=== PATIENT | female | born 1995 | race Caucasian/White ===

== ENCOUNTER 2020-07-29 20:19 | Inpatient (IN) | payer OTHER, SELFPAY ==
--- NOTE | ~2020-07-29 | MR_ITS ---
EXAMINATION: MR abdomen wo/w con DATE: 07/30/2020 10:46 INDICATION: Abdominal pain. TECHNIQUE: Magnetic resonance imaging (MRI) of the abdomen was performed without and with 10 mL Multi Erin intravenous contrast. Sequences included coronal T2-weighted FS FSE, coronal and axial FS FIEST A, axial T2-weighted FSE, coronal LAVA-flex, axial STIR FSE, axial DWI, axial dual-echo T1-weighted F SPGR, and axial LAVA. Postcontrast sequences included coronal LAVA-flex and a time course of axial LA VA. COMPARISON: CT abdomen and pelvis 07/29/2020 FINDINGS: The liver, gallbladder, spleen, pancreas, adrenal glands, and right kidney are normal. There is a 4 m m cyst in left kidney. There are dilated loops of small bowel without focal transition point. There a re no pathologically enlarged lymph nodes. There is no free intraperitoneal fluid. The bladder is dis tended. IMPRESSION: 1. Dilated small bowel without focal transition point, consistent with adynamic ileus. Reviewed, dictated and finalized at location A.
--- NOTE | ~2020-07-29 | CT_ITS ---
EXAMINATION: CT chest abdomen pelvis w con EXAM DATE: 07/29/2020 22:06 INDICATION: Diffuse abdominal pain. Groin pain. Chest pain, constipation, elevated white blood cell c ount. TECHNIQUE: Spiral CT of the chest, abdomen and pelvis was performed following intravenous injection o f 100 mL Omnipaque 350. Axial, coronal and sagittal images were reviewed. Coronal maximum intensity pixel images of chest reviewed. The dose-length product (DLP) for this examination was 305.79 mGy-c m. The exposure was tailored according to patient size (auto mA exposure control), and iterative rec onstruction (ASIR) was used as additional dose reduction technique. There is no prior study for yoana carrasco. FINDINGS: CHEST: The lungs are clear. There are no pleural or pericardial effusions. Tracheobronchial tree is patent. There is no mediastinal, hilar or axillary lymphadenopathy. There is no pneumothorax. Heart normal in size. No evidence of coronary arterial calcification. ABDOMEN PELVIS: Large amount of ascending colonic fluid, moderate amount of descending colonic stool. Multiple loops of mildly distended fluid-filled small bowel. Stomach is also distended with fluid. C onsider enteritis. The appendix is not positively visualized. There is no pericecal inflammatory donna nge to suggest appendicitis. No free intraperitoneal air. The liver, spleen, adrenal glands and pancreas are unremarkable. Gallbladder is unremarkable. No bi liary obstruction. Portal and splenic veins are patent. Kidneys enhance symmetrically. There is no hydronephrosis. The uterus is unremarkable. The bladder is unremarkable. There is no retroperit rowland or pelvic lymphadenopathy. There are no osseous abnormalities identified. IMPRESSION: 1. Fluid-filled ascending colon and small bowel with mild small bowel dilation. Consider enteritis. 2. Normal chest. Reviewed, dictated and finalized at location A. IMPRESSION: 1. Fluid-filled ascending colon and small bowel with mild small bowel dilation . Consider enteritis. 2. Normal chest.
--- NOTE | 2020-07-29 20:22 | ED.ABDPAIN ---
HPI - Abdominal Pain General Chief Complaint: Abdominal Pain Stated Complaint: abd pain Time Seen by Provider: 07/29/20 20:31 Source: patient Mode of arrival: wheelchair Limitations: no limitations History of Present Illness HPI narrative: 24-year-old woman comes in today complaining of abdominal pain that goes from her chest down to her pelvis and states that she cannot have a bowel movement or urinate. She states that her symptoms started yesterday and she hasn't had a bowel movement for three days. She states that they started suddenly and had not gotten any better or worse since onset. She denies injury, nausea, vomiting, vaginal discharge, hematuria, dysuria, fever, chills or prior similar symptoms. He has no history of surgery. MD elicited complaint: abdominal pain Onset (ago): day(s) (2) Pain Consistency: constant Location: diffuse Severity: severe Quality: sharp Radiation: none Migration to: no migration Exacerbating factors: nothing Relieving factors: nothing Related Data Patient : No Home Medications Medication Instructions Recorded Confirmed No Home Medications 07/29/20 07/29/20 Allergies Allergy/AdvReac Type Severity Reaction Status Date / Time Bumble Bee Allergy Mild Hives / Uncoded 07/30/18 11:25 Red Face Review of Systems Constitutional: Constitutional: Denies chills and Denies fever(s) Eyes: Eyes: Denies change in vision and Denies photophobia ENT: Denies dysphagia, Denies nasal congestion and Denies sore throat Cardiovascular: Cardiovascular: Denies chest pain and Denies radiating jaw, neck or arm pain Respiratory: Respiratory: Denies cough, Denies dyspnea and Denies wheezing Gastrointestinal: Gastrointestinal: Reports abdominal pain, Denies diarrhea, Denies nausea and Denies vomiting Genitourinary: Genitourinary: Denies nocturia and Denies dysuria Musculoskeletal: Musculoskeletal: Denies arthralgias and Denies joint swelling Integumentary/Breasts: Skin/Breast: Denies pruritus, Denies erythema and Denies rash Neurologic: Denies vertigo, Denies dizziness and Denies syncope Hematologic/Lymphatic: Hematologic/Lymphatic: Denies easy bleeding and Denies easy bruising Allergic/Immunologic: Allergic/Immunologic: Denies lip swelling and Denies wheezing PMFSH Social History Social History Smoking status: Never smoker Alcohol intake: never Substance use: never Living arrangements: with family Exam Const: Other: mod-severe acute distress HENMT: Head: normal to inspection Face and sinus: normal facial exam Mouth: Yes moist mucous membranes Throat: posterior oropharynx normal Eyes: Conjunctivae: conjunctivae normal Pupils: Equal, round and reactive pupils present EOM: EOMs intact bilaterally Neck: Neck: normal visual inspection and no lymphadenopathy Resp: Effort & Inspection: normal respiratory effort and not labored Auscultation: clear to auscultation bilaterally, no rales, no rhonchi and no wheezes Cardio: Rate: regular rate Rhythm: regular rhythm Heart sounds: no murmurs GI: Inspection: distended GI Palp: Yes Tenderness to palpation present (GI), No Rigid due to palpation and No Palpable mass present Skin: General skin exam: normal color, no jaundice and no pallor Rashes: no rashes Neuro: General: patient oriented x3, moves all extremities, no focal motor deficits and CN's II-XI intact bilaterally Speech: normal speech Extrem: General: normal to inspection and no clubbing, cyanosis or edema Psych: Appearance: grossly normal and well kempt Mental Status: mental status grossly normal Affect: normal affect Attitude: cooperative Thought content: Yes Normal thought content present MDM - Abdominal Pain Differential Diagnosis Differential diagnosis: Likely abdominal pain, acute appendicitis, constipation, endometriosis, pancreatitis and small bowel obstruction Lab Data Attestation: I reviewe
[2020-07-29 20:33] VITALS: BP 97/67; PULSE 110; RESP 16; TEMP 36.8; O2SAT 100
[2020-07-29] MEDS: ONDANSETRON INJ 4 MG/2 ML VIAL IV PUSH (20:49)
[2020-07-29] MEDS: SODIUM CHLORIDE 0.9% IV 1,000 ML 999 ML IV CONT ×2 (20:49→21:34)
[2020-07-29] MEDS: HYDROmorphone HCL 2 MG/ML VIAL 0.5 MG IV PUSH (20:49)
[2020-07-29] MEDS: PANTOPRAZOLE SODIUM IV 40 MG VIAL IV PUSH (20:50)
[2020-07-29 21:10] LABS: Hematocrit 37.3 % (35.0-49.0); Mean Corpuscular HGB Conc 29.5 g/dL (32.0-36.0); Mean Corpuscular Hemoglobin 21.3 pg (27.0-31.0); Mean Corpuscular Volume 72.3 fL (78.0-102.0); Mean Platelet Volume 9.3 fl (9.2-11.8); Platelet Count Result 233 K/mm3 (150-420); Red Blood Count 5.16 M/mm3 (4.20-5.40); Red Cell Distribution Width 16.5 % (11.6-14.4)
[2020-07-29 21:25] LABS: INR 1.1; Partial Thromboplastin Time 33.8 SEC (22.3-31.6); Prothrombin Time 11.5 Seconds (9.64-11.0)
[2020-07-29 21:26] LABS: Alanine Aminotransferase 19 U/L (14-59); Albumin Level 4.4 g/dL (3.4-5.0); Alkaline Phosphatase 109 U/L (46-116); Anion Gap 13 mmol/L (8-16); Aspartate Amino Transferase 24 U/L (15-37); Bilirubin,Total 0.7 mg/dL (0.00-1.00); Blood Urea Nitrogen 11 mg/dL (7-18); Calcium 8.8 mg/dL (8.5-10.1); Carbon Dioxide 25 mmol/L (21-32); Chloride 98 mmol/L (98-108); Estimated CRCL calculation 61 ml/min; Estimated Glomerular Filt Rate > 60; Glucose 106 mg/dL (70-99); Lipase 67 U/L (73-393); Osmolality Calculated 281 mOsm/kg (285-295); Potassium 3.5 mmol/L (3.5-5.1); Sodium 136 mmol/L (136-145); Total Protein 8.2 g/dL (6.4-8.2)
[2020-07-29 21:30] LABS: White Blood Count 22.2 K/mm3 (4.8-10.8)
[2020-07-29 21:31] LABS: Band Neutrophils Percent 5 % (0-6); Basophils Percent Manual 0 % (0-1); Eosinophils Percent Manual 0 % (1-6); Lymphocytes Absolute Manual 1.33 K/mm3 (1.1-4.5); Lymphocytes Percent Manual 6 % (18-44); Metamyelocytes Percent 1 %; Monocytes Absolute Manual 0.66 K/mm3 (0.1-0.90); Monocytes Percent Manual 3 % (3-9); Neutrophils Absolute Manual 19.98 K/mm3 (1.7-7.2); Neutrophils Percent Manual 85 % (46-73); Total Cells Counted 100
[2020-07-29 21:32] LABS: Anisocytosis 1+ (NORMAL); Atypical Lymphocytes Present; Platelet Estimate Adequate (Adequate)
[2020-07-29 21:36] LABS: Beta HCG Quantitative < 1.00 mIU/mL (0-6)
[2020-07-29 21:37] VITALS: BP 107/65; PULSE 104; RESP 14; O2SAT 100
[2020-07-29 21:45] LABS: Lactic Acid Reflex 1.7 mmol/L (0.4-2.0)
[2020-07-29 22:20] VITALS: BP 115/69; PULSE 100; RESP 16; O2SAT 100
[2020-07-29 23:15] VITALS: BP 103/65; PULSE 98; RESP 20; TEMP 36.9; O2SAT 98
[2020-07-29 23:50] VITALS: RESP 20
[2020-07-30] MEDS: SODIUM CHLORIDE 0.9% IV 1,000 ML 150 ML IV CONT ×2 (00:11→06:47)
[2020-07-30] MEDS: KETOROLAC 15 MG/ML VIAL (*BKC) IV PUSH ×2 (00:21→10:46)
--- NOTE | 2020-07-30 01:04 | ADMGEN ---
This patient, Eliane Muñiz, was admitted to 2nd Floor Room 202-2. Patient/family oriented to hospital policies and general routines including ID bracelet, bed and alarms, visiting hours, pain management, procedures, bathroom and other care routines, personal items, smoking policy, room service/diet, and visiting hours. Valuables list has been completed. Need for Urine Specimen. Patient reluctant to answer questions and became loud, stating I dont know to questions regarding her current illnes and history. Information on how to activate the Rapid Response Team has been discussed. Patient/Family are encouraged to report perceived risks to care and to ask questions if they do not understand what they are told or what they should do.
--- NOTE | 2020-07-30 03:10 | PC.NURSE ---
Sleeping; no signs of pain.
--- NOTE | 2020-07-30 05:31 | PC.NURSE ---
Slept most of night. Occasionally awakens as IV positional and alarms. 1000ml 0.9NS infusing at 150ml/hr per IV pump without signs infection/infiltration. Patient has not voided. Turning self in bed. No signs of pain or discomfort.
[2020-07-30 05:38] LABS: Basophils Absolute Auto 0.03 K/mm3 (0.00-0.10); Basophils Percent Auto 0.2 % (0.0-1.0); Eosinophils Absolute Auto 0.01 K/mm3 (0.02-0.50); Eosinophils Percent Auto 0.1 % (1.0-6.0); Hematocrit 32.5 % (35.0-49.0); Hemoglobin 9.2 g/dL (12.0-15.0); Immature Granulocyte Absolute 0.24 K/mm3 (0.00-0.00); Immature Granulocyte Percent A 1.4 % (0.0-0.0); Lymphocytes Absolute Auto 0.84 K/mm3 (1.10-4.50); Lymphocytes Percent Auto 4.9 % (18.0-42.0); Mean Corpuscular HGB Conc 28.3 g/dL (32.0-36.0); Mean Corpuscular Hemoglobin 20.7 pg (27.0-31.0); Mean Platelet Volume 9.7 fl (9.2-11.8); Monocytes Absolute Auto 0.63 K/mm3 (0.10-0.90); Monocytes Percent Auto 3.7 % (2.0-11.0); Neutrophils Absolute Auto 15.5 K/mm3 (1.7-7.2); Neutrophils Percent Auto 89.7 % (50.0-70.0); Platelet Count Result 186 K/mm3 (150-420); Red Blood Count 4.45 M/mm3 (4.20-5.40); Red Cell Distribution Width 16.6 % (11.6-14.4); White Blood Count 17.2 K/mm3 (4.8-10.8)
[2020-07-30 05:59] LABS: Alanine Aminotransferase 14 U/L (14-59); Albumin Level 3.1 g/dL (3.4-5.0); Alkaline Phosphatase 86 U/L (46-116); Anion Gap 11 mmol/L (8-16); Aspartate Amino Transferase < 10 U/L (15-37); Bilirubin,Total 0.5 mg/dL (0.00-1.00); Blood Urea Nitrogen 10 mg/dL (7-18); Calcium 7.8 mg/dL (8.5-10.1); Carbon Dioxide 22 mmol/L (21-32); Chloride 103 mmol/L (98-108); Estimated CRCL calculation 74 ml/min; Estimated Glomerular Filt Rate > 60; Glucose 95 mg/dL (70-99); Osmolality Calculated 281 mOsm/kg (285-295); Potassium 3.4 mmol/L (3.5-5.1); Sodium 136 mmol/L (136-145); Total Protein 6.4 g/dL (6.4-8.2)
[2020-07-30 07:20] VITALS: BP 87/46; PULSE 113; RESP 18; TEMP 37.3; O2SAT 100
--- NOTE | 2020-07-30 08:43 | PM.IMHP ---
H&P: HPI History of Present Illness Date/Time: 07/30/20 08:43 Chief complaint: abd pain Narrative: Eliane Muñiz is a 24 year old female that presented to the ED with complaints of abdominal pain that started 2 days ago. Patient does not have any past medical history. According to the patient 2 days ago she started experiencing abdominal pain and was unable to urinate or have a bowel movement. She also notes that the abdominal pain is on both of her sides. Patient pain is controlled with pain medication but she continues to have abdominal pain cramping. Patient's vital signs are 98/40 6/113/18/90 9.2/100% on room air. On admission patient's WBCs was 22.2 hemoglobin 11.0 hematocrit 37.3. INR 1.1. Lactic acid 1.7. Blood cultures are pending. CT indicates fluid-filled ascending colon with small bowel ML small bowel dilation consider enteritis. The patient denies SOB, CP, palpitation, extremity numbness, lightheadedness, dizziness, , diarrhea, chills, or fever. Patient continues to complain of abdominal pain she continues to be unable to urinate or have a bowel movement. Review of Systems Review of Systems: All systems reviewed & are unremarkable except as noted in HPI and below (10 point system review) [facility] Social History Social History Smoking status: Never smoker Alcohol intake: unknown Substance use: never Substance use type: does not use Living arrangements: with family Gender identity (if verbalized by the patient): Female Sexual Orientation (if Verbalized by the Patient): Straight or Heterosexual Spiritual care concerns: No Meds Home Medications and Allergies Home Medications Medication Instructions Recorded Confirmed Type No Home Medications 07/29/20 07/29/20 History Allergies Allergy/AdvReac Type Severity Reaction Status Date / Time Bumble Bee Allergy Mild Hives / Uncoded 07/30/18 11:25 Red Face Vital Signs Vital Signs - 24 hr 07/29/20 20:33 07/29/20 21:37 07/29/20 22:20 Temperature 98.3 F Pulse Rate 110 H 104 H 100 Respiratory Rate 16 14 16 Blood Pressure 97/67 L 107/65 115/69 Pulse Oximetry 100 100 100 07/29/20 23:15 07/29/20 23:50 07/30/20 07:20 Temperature 98.4 F 99.2 F Pulse Rate 98 113 H Respiratory Rate 20 20 18 Blood Pressure 103/65 87/46 L Pulse Oximetry 98 100 Exam Narrative: Exam Narrative: GENERAL: This is a well-nourished, well-developed patient, in no apparent distress. HEAD: normocephalic, atraumatic. EYES: PERRL. Sclera clear/white. Vision is grossly intact. EARS: External ears normal, auditory canals clear and without drainage, TMs normal without perforation. Hearing grossly intact. NOSE: External nose normal with no obvious nasal discharge, nares without redness, no rhinorrhea. THROAT: Mucous membranes moist, posterior pharynx clear. NECK: Neck supple, non-tender without lymphadenopathy, masses or thyromegaly. CARDIOVASCULAR: Regular rate and rhythm without murmurs, gallops, or rubs. RESPIRATORY: Clear to auscultation. Breath sounds equal bilaterally. No wheezes, rales, or rhonchi. GASTROINTESTINAL: Abdominal tenderness with palpation. No hepato-splenomegaly, or palpable masses. SKIN: warm, intact with no suspicious lesions or rash, good texture and turgor. NEURO: awake, alert, and oriented to person, place and time. There were no obvious focal neurologic abnormalities. Steady gait EXTREMITIES: Normal range of motion. No edema. No calf tenderness. Negative Homans sign bilaterally. BACK: Nontender without deformity or crepitance. No flank tenderness. [place] Coma Scale Eye Opening: Spontaneous 4 [place] Coma Scale Motor: Obeys Commands 6 [place] Coma Scale Verbal: Oriented 5 H&P: Results Labs Labs: Short CBC 07/29/20 07/30/20 Range/Units 21:02 05:28 WBC 22.2 H* 17.2 H (4.8-10.8) K/mm3 Hgb 11.0 L 9.2 L (12.0-15.0) g/dL Hct 37.3 32.5 L (35.0-49.0) % Plt
[2020-07-30 08:51] LABS: INR 1.2; Prothrombin Time 12.4 Seconds (9.64-11.0)
[2020-07-30 09:08] LABS: CRP > 25.0 mg/dL (0.0-0.9)
--- NOTE | 2020-07-30 09:50 | PC.NURSE ---
Patient taken down for MRI via wheelchair.
--- NOTE | 2020-07-30 10:40 | PC.NURSE ---
Patient back from having MRI. Patient able to urinate and have small BM on toilet. Patient reports abdominal cramping. Ambulated with no assist from bathroom to bed. Gait steady.
[2020-07-30] MEDS: ONDANSETRON INJ 4 MG/2 ML VIAL IV PUSH (10:46)
[2020-07-30 11:02] LABS: Add Urine Microscopic? YES; Appearance Urine Cloudy (Clear); Bilirubin Urine Negative (Negative); Blood Urine 3+ (Negative); Color Urine Amber (Yellow); Glucose Urine UA Negative (Negative); Ketones Urine Negative (Negative); Leukocyte Esterase Ur Negative LEU/UL (Negative); Nitrate Urine Negative (Negative); Protein Urine Trace (Negative); Urobilinogen Urine 0.2 mg/dL (0.2-1.0)
[2020-07-30 11:14] LABS: Amphetamine Screen Urine Positive (Negative); Barbiturate Screen Urine Negative (Negative); Benzodiazepines Screen Urine Negative (Negative); Cannabinoid Screen Urine Positive (Negative); Cocaine Screen Urine Negative (Negative); Methadone Screen Urine Negative (Negative); Opiate Screen Urine Positive (Negative); Phencyclidine Screen Urine Negative (Negative)
[2020-07-30 11:51] LABS: RBC Urine 21-50 /hpf (0-2); WBC Clumps Urine Present /hpf
[2020-07-30 11:52] LABS: Bacteria Urine 3+ /hpf; Squamous Epithelial Cell Urine Few /hpf (Few)
[2020-07-30 13:09] LABS: Hematocrit 31.6 % (35.0-49.0); Hemoglobin 9.1 g/dL (12.0-15.0)
[2020-07-30] MEDS: METOCLOPRAMIDE HCL INJ 10 MG/2 ML VIAL IV PUSH (13:10)
[2020-07-30] MEDS: KCL 20 MEQ/SW 100 ML 100 ML 50 MEQ IVPB (13:10)
[2020-07-30 13:27] LABS: Lactic Acid Reflex 1.3 mmol/L (0.4-2.0)
[2020-07-30 14:04] VITALS: BP 89/51; PULSE 77; RESP 18; TEMP 36.6; O2SAT 100
[2020-07-30] MEDS: SODIUM CHLORIDE 0.9% IV 1,000 ML 999 ML IV CONT ×2 (14:20→16:36)
[2020-07-30] MEDS: POTASSIUM CHLORIDE 20 MEQ TABLET 40 MEQ PO (14:26)
--- NOTE | 2020-07-30 17:00 | PC.NURSE ---
Patient refused IV fluids.
--- NOTE | 2020-07-30 17:45 | PC.NURSE ---
Patient reports that she feels like she is going to freak out and she is anxious and cannot breathe. Patient states she wont take anything for anxiety. States she just has to get out of here and needs to see her kids. States she wants to leave AMA. Dr. Garcia notified, states he will be up to speak with patient.
--- NOTE | 2020-07-30 17:55 | PC.NURSE ---
Dr. Garcia in room to speak with patient about concerns.
--- NOTE | 2020-07-30 18:00 | PM.EVENT ---
Event Note Event Note Event Note: Nursing called about patient wanting to sign out AMA, talked to patient and she feels claustrophobic and wants to get home to her children. Advised her to stay to continue treatment but she is insistent about leaving, She will sign out AMA, advised her to F/U with her PCP, she states she does not have a PCP, and told her if she has any problems to return to the ER, otherwise a Provider name will be given to her.
--- NOTE | 2020-07-30 18:10 | PC.NURSE ---
Dr. Garcia spoke with patient. Patient still insist on signing out AMA. IV site removed, tip intact. Dressing applied to site. Patient signed out AMA. All belongings gathered. This nurse accompanied patient to front door, patient left via private vehicle with sister.
[2020-07-30 18:39] LABS: Occult Blood Negative (Negative)
== END 2020-07-30 18:10 | disposition left against medical advice (07) | DRG 720 ==
LOC: CHSED 22:49 → CHS2ND 08-01 07:15
PROVIDERS: Nurse Practitioner; Admitting Provider Emergency Medicine; Emergency Provider Emergency Medicine; Visit Provider Emergency Medicine
DX: A41.9 Sepsis, unspecified organism (principal); K56.0 Paralytic ileus; K52.9 Noninfective gastroenteritis and colitis, unspecified; Z53.29 Procedure and treatment not carried out because of patient's decision for other reasons
CPT/HCPCS: 36415; 71260; 74177; 74183; 80053; 80307; 81001; 83605; 83690; 84702; 85014; 85018; 85025; 85610; 85730; 86140; 86850; 86900; 86901; 87040; 87086; 88321; 96361; 96365; 96367; 96374; 96375; 96376; 99284; 99285; A9270; A9577; C9113; G0378; G0379; J0696; J1170; J1885; J2405; J2765; J3370; J3480; J7030; Q9965

== ENCOUNTER 2020-12-08 23:46 | Emergency (ER) | payer OTHER, SELFPAY ==
--- NOTE | ~2020-12-08 | XR_ITS ---
EXAMINATION: XR foot LT min 3V EXAM DATE: 12/09/2020 00:37 INDICATION: Laceration between 1st and 2nd toes, pain. TECHNIQUE: Left foot dorsoplantar, lateral and oblique projections obtained and reviewed. There is n o prior study for comparison. FINDINGS: Left metatarsal bones unremarkable. There are no acute fractures or dislocations identifi ed. There is no subcutaneous gas. The soft tissue is unremarkable. There are no radiopaque foreig n bodies. IMPRESSION: No acute osseous findings. Reviewed, dictated and finalized at location A. NCIAL ADMINISTRATION OFFICER IMPRESSION: No acute osseous findings.
[2020-12-08 23:51] VITALS: BP 124/85; PULSE 100; RESP 20; TEMP 36.4; O2SAT 100
--- NOTE | 2020-12-09 00:16 | ED.WOUNDLAC ---
HPI - Wound/Laceration General Chief Complaint: Wound/Laceration Stated Complaint: stepped on glass Time Seen by Provider: 12/08/20 23:58 Source: patient Mode of arrival: ambulatory Limitations: no limitations History of Present Illness HPI narrative: This patient is a 25 year old female who presents for evaluation a laceration on the bottom of her left foot. She reports 24 hours ago she accidentally cut the bottom of her foot near the web of 1st/2nd toes. She cut on toe on glass. She thinks she has removed all the glass. She states she placed a bandage and she has been able to control the bleeding. She has come to the ER because she is having severe pain . She is unsure of her tetanus. Related Data Home Medications Medication Instructions Recorded Confirmed No Home Medications 12/09/20 12/09/20 Allergies Allergy/AdvReac Type Severity Reaction Status Date / Time Bumble Bee Allergy Mild Hives / Uncoded 07/30/18 11:25 Red Face Review of Systems Review of Systems: All systems reviewed & are unremarkable except as noted in HPI and below PMFSH Past Medical History Medical History (Updated 12/09/20 @ 01:27 by Denita Gilliam MD) Patient denies medical problems Family History Family History Father Cancer of unknown origin Social History Social History Smoking status: Never smoker Alcohol intake: unknown Substance use: never Substance use type: does not use Gender identity (if verbalized by the patient): Female Spiritual care concerns: No Exam Const: General: no acute distress and alert Orientation/consciousness: patient oriented x3 Resp: Effort & Inspection: normal respiratory effort Neuro: General: patient oriented x3 and moves all extremities Extrem: Other: left foot with L shape laceration 1 cm on sole of foot at base of 2nd toe into web between 11/19. Psych: Mental Status: mental status grossly normal Affect: normal affect Course Reevaluation(s) Reevaluation #1: I discussed with patient that since her laceration occurred 24 hours ago and it is on the foot I am unable to suture due to risk of infection. she understands . I cleaned wound with wound cleanser. I applied nonadherent dressing with coban. I discussed wound care with patient. Date: 12/09/20 Time: : Vital Signs Vital signs: Vital Signs Temperature 97.5 F L 12/08/20 23:51 Pulse Rate 100 12/08/20 23:51 Respiratory Rate 20 12/08/20 23:51 Blood Pressure 124/85 12/08/20 23:51 Pulse Oximetry 100 12/08/20 23:51 Temperature 97.5 F L 12/08/20 23:51 Pulse Rate 100 12/08/20 23:51 Respiratory Rate 20 12/08/20 23:51 Blood Pressure 124/85 12/08/20 23:51 Pulse Oximetry 100 12/08/20 23:51 MDM - Wound/Laceration Imaging Data Attestation: I personally reviewed and interpreted this imaging study as follows: My impression: left foot xray- no foreign body, no fracture Discharge Plan Discharge Clinical Impression: Laceration of foot, left Patient Disposition: Home, Self-Care Condition: Stable Instructions: Laceration Without Closure (ED) Additional Instructions: Today you were evaluated for a laceration on your foot. We were unable to close due to risk of infection. Clean your wound daily. Watch for signs of infection. If you develop an infection return to ER. Take tylenol or ibuprofen for your pain Prescriptions: No Action No Home Medications RF: 0 Follow-up/Referrals: PHYSICIAN,SUPPLY CHAIN DEVELOPMENT MANAGER [Primary Care Provider] - Adonis Skaggs, [Physician] -
[2020-12-09] MEDS: IBUPROFEN 400 MG TABLET PO (00:29)
[2020-12-09] MEDS: LIDOCAINE, EPINEPHRINE, TETRACAINE VISCOUS SOLN 3 ML TOPICAL (00:43)
[2020-12-09] MEDS: TETANUS,DIPHTHERIA,AC PERTUSSIS ADULT (0.5 ML) BOOSTRIX IM (00:43)
== END 2020-12-09 01:40 | disposition home or self-care (01) ==
PROVIDERS: Emergency Provider General Practice
DX: S91.312A Laceration without foreign body, left foot, initial encounter (principal); W25.XXXA Contact with sharp glass, initial encounter; Z23 Encounter for immunization
CPT/HCPCS: 73630; 90471; 90715; 99283; A9270

== ENCOUNTER 2024-01-30 05:40 | Emergency (ER) | payer OTHER, SELFPAY ==
[2024-01-30 05:41] VITALS: BP 128/84; PULSE 64; RESP 16; TEMP 36.6; O2SAT 96
[2024-01-30 07:20] VITALS: BP 124/98; PULSE 80; RESP 18; O2SAT 100
--- NOTE | 2024-01-30 07:50 | ED.SKABFB ---
HPI - Skin/Abscess/Foreign Bdy General Chief complaint: Skin/Abscess/Foreign Body Stated complaint: boil in arm Time Seen by Provider: 01/30/24 06:59 History of Present Illness HPI narrative: Patient is a 28-year-old female who presents ER with an abscess to left axilla. This is not happened to her before. No fevers or chills or sweats. She does not think it is an injury from shaving. It is red and tender to touch. No drainage. Related Data Allergies Allergy/AdvReac Type Severity Reaction Status Date / Time Bumble Bee Allergy Mild Hives / Uncoded 01/30/24 05:49 Red Face Review of Systems Constitutional: Constitutional: Reports no additional constitutional complaints Musculoskeletal: Musculoskeletal: Reports no additional musculoskeletal complaints Integumentary/Breasts: Skin/Breast: Denies pruritus, Reports erythema and Denies rash Comments: Left axillary abscess PMFSH Past Medical History Medical History (Updated 01/30/24 @ 08:38 by Iker Archibald MD) Patient denies medical problems Family History Family History Father Cancer of unknown origin Social History Social History Smoking status: Never smoker Alcohol intake: unknown Substance use: never Substance use type: does not use Living arrangements: with family Gender identity (if verbalized by the patient): Female Sexual Orientation (if Verbalized by the Patient): Straight or Heterosexual Spiritual care concerns: No Exam Narrative: GENERAL: Well-appearing, well-nourished, and in no acute distress. HEAD: Normocephalic, atraumatic. ENT: Mucous membranes moist. EXTREMITIES: Normal range of motion. No edema. SKIN: Warm, dry, no rash. Left axillary abscess that is approximately 2 cm x 4 cm with central fluctuance. No real induration to indicate cellulitis. NEURO: Alert and oriented x3. PSYCH: Normal mood and affect. Course Course Emergency Course: Patient tolerated I and D. Discharge home with oral antibiotics and pain medication. Educated that she will need to remove her packing in 2 days. Vital Signs Vital signs: Vital Signs Temperature 97.9 F 01/30/24 05:41 Pulse Rate 64 01/30/24 05:41 Respiratory Rate 16 01/30/24 05:41 Blood Pressure 128/84 01/30/24 05:41 Pulse Oximetry 96 01/30/24 05:41 Oxygen Delivery Room Air 01/30/24 05:41 Temperature 97.9 F 01/30/24 05:41 Pulse Rate 80 01/30/24 07:20 Respiratory Rate 18 01/30/24 07:20 Blood Pressure 124/98 H 01/30/24 07:20 Pulse Oximetry 100 01/30/24 07:20 Oxygen Delivery Room Air 01/30/24 05:41 Procedures Abscess I/D axilla: Date of Incision: 01/30/24 Time of Incision: 08:25 Side (if applicable): left Local Anesthetic: lidocaine 1% and with epi Amount of anesthesia used (mL): 5 Technique: incised with #11 blade Irrigation: No Packing used?: iodoform I&D Results: Pus Discharge Plan Discharge Clinical Impression: Abscess Patient Disposition: Home, Self-Care Condition: Stable Instructions: Antibiotic Form, Abscess (ED) Additional Instructions: Remove your packing in 2 days. Return to the ER if you have worsening pain, you have fever over 100.4? F, or you have additional concerns. Prescriptions: New sulfamethoxazole-trimethoprim [Bactrim DS] 800-160 mg tablet 1 tablet PO Q12H Qty: 20 0RF hydrocodone-acetaminophen 5-325 mg tablet 1 tablet PO Q6H PRN (Reason: pain) Qty: 20 0RF Follow-up/Referrals: Veto Scott MD [Physician] - 1 Week PHYSICIAN,DYE MACHINE TENDER [Primary Care Provider] -
[2024-01-30] MEDS: HYDROcodone/acetaminophen (*CRX) 5-325 MG TABLET 1 TAB PO (09:11)
== END 2024-01-30 10:06 | disposition home or self-care (01) ==
LOC: ANHED 08:47
PROVIDERS: Emergency Provider Emergency Medicine
DX: L02.412 Cutaneous abscess of left axilla (principal)
CPT/HCPCS: 10061; 99283; A9270

== ENCOUNTER 2024-04-13 15:03 | Emergency (ER) | payer OTHER, SELFPAY ==
--- NOTE | ~2024-04-13 | XR_ITS ---
EXAMINATION: XR chest 2V 04/13/2024 15:53 INDICATION: Cough PROCEDURE: 2 view chest COMPARISON: No prior studies for comparison. FINDINGS: The lungs are clear. The cardiomediastinal silhouette is within normal limits. There are no pleural effusions. There is no pneumothorax suspected. IMPRESSION: 1: NO ACUTE CARDIOPULMONARY DISEASE. Reviewed, dictated and finalized at location A.
[2024-04-13 15:10] VITALS: BP 99/64; PULSE 126; RESP 20; TEMP 36.7; O2SAT 100
--- NOTE | 2024-04-13 16:25 | ED.GENADULT ---
HPI - General Adult General Chief complaint: Upper Respiratory Infection Stated complaint: cough/nose/sob Source: patient Mode of arrival: ambulatory Limitations: no limitations History of Present Illness HPI narrative: Patient presents for evaluation of sick symptoms for last 3 days. Symptoms include sinus congestion, thick yellow drainage from the nares, productive cough, wheezing and mild shortness of breath. No fever, chills, nausea, vomiting. Her sister is here being evaluated for similar symptoms. She does vape. She is not taking any medications to assist with her symptoms. Related Data Allergies Allergy/AdvReac Type Severity Reaction Status Date / Time bee venom protein (honey bee) Allergy Mild Hives Verified 04/13/24 15:25 Review of Systems Review of Systems: CONSTITUTIONAL: Denies fever, chills, or sweats. EYES: Denies visual changes, redness, or discharge. ENT: Reports sinus congestion and thick yellow drainage from the nares. Denies sore throat or otalgia CARDIOVASCULAR: Denies chest pain, palpitations, or edema. RESPIRATORY: Reports productive cough of yellow sputum, wheezing, shortness of breath GASTROINTESTINAL: Denies abdominal pain, nausea, vomiting, or diarrhea. GENITOURINARY: Denies dysuria or hematuria. SKIN: Denies rash or itching. MUSCULOSKELETAL: Denies back pain, joint pain, or myalgia. NEUROLOGIC: Denies headache, numbness, dizziness, or weakness. PSYCHIATRIC: Denies anxiety or depression. [facility] Past Medical History Medical History Patient denies medical problems Surgical History Surgical History No pertinent past surgical history Family History Family History Father Cancer of unknown origin Social History Social History Smoking status: Current every day smoker Tobacco type: e-cigarettes/vaping Alcohol intake: unknown Substance use: never Substance use type: does not use Living arrangements: with family Gender identity (if verbalized by the patient): Female Sexual Orientation (if Verbalized by the Patient): Straight or Heterosexual Spiritual care concerns: No Exam Narrative: GENERAL: Well-appearing, well-nourished, and in no acute distress. HEAD: Normocephalic, atraumatic. EYES: PERRLA and EOMI. ENT: Nares clear, no rhinorrhea or epistaxis. Mucous membranes moist. Oropharynx without tonsillar hypertrophy exudate or other lesions. Bilateral TMs pearly lynn nonbulging NECK: Supple. No adenopathy or masses. No carotid bruits or JVD CHEST: Clear to auscultation. No respiratory distress. No wheezes rales or rhonchi HEART: Regular rate and rhythm. No murmur heard. Normal peripheral pulses. ABDOMEN: Soft, nontender, nondistended, normal active bowel sounds. EXTREMITIES: Normal range of motion. No edema. SKIN: Warm, dry, no rash. NEURO: No focal deficits. Alert and oriented x3. PSYCH: Normal mood and affect. Course Course Emergency Course: This is a 28-year-old female who presented for evaluation of sick symptoms. Chest x-ray was obtained due to reported wheezing and smoking history. Chest x-ray normal. Her sister is here for similar symptoms. Exam is consistent with acute viral syndrome. Increase hydration. [id number] agents for symptom management. Heart rate improved. Will dc with prednisone, albuterol and mucinex DM. Follow up with primary provider. Go to the ER for worsening symptoms. Pt in agreement with plan of care. Level of Care: Express Care Visit Vital Signs Vital signs: Vital Signs Temperature 36.7 C 04/13/24 15:10 Pulse Rate 126 H 04/13/24 15:10 Respiratory Rate 20 04/13/24 15:10 Blood Pressure 99/64 L 04/13/24 15:10 Pulse Oximetry 100 04/13/24 15:10 Oxygen Delivery Ro
== END 2024-04-13 16:05 | disposition home or self-care (01) ==
PROVIDERS: Emergency Provider Nurse Practitioner
DX: J06.9 Acute upper respiratory infection, unspecified (principal); F17.290 Nicotine dependence, other tobacco product, uncomplicated
CPT/HCPCS: 71046; 99213; G0463

== ENCOUNTER 2025-06-16 15:32 | Emergency (ER) | payer OTHER, SELFPAY ==
[2025-06-16 15:38] VITALS: BP 138/76; PULSE 113; RESP 18; TEMP 36.6; O2SAT 100
--- NOTE | 2025-06-16 15:46 | ED.URI ---
HPI - URI/Sore Throat General Chief Complaint: Upper Respiratory Infection Stated Complaint: Cough Time Seen by Provider: 06/16/25 15:46 Source: patient Mode of arrival: ambulatory Limitations: no limitations History of Present Illness HPI Narrative: 29 yo F presents with 3 days of congestion, cough, PND. No CP or SOB. uses a vape. States since getting tonsils removed gets a lot of drainage that fills bronchioles. All systems reviewed and negative except as noted above. Related Data Allergies Allergy/AdvReac Type Severity Reaction Status Date / Time bee venom protein (honey bee) Allergy Mild Hives Verified 06/16/25 15:34 Review of Systems Review of Systems: CONSTITUTIONAL: Denies fever, chills, or sweats. EYES: Denies visual changes, redness, or discharge. ENT: Reports rhinorrhea, congestion. Denies sore throat, or otalgia. CARDIOVASCULAR: Denies chest pain, palpitations, or edema. RESPIRATORY: reports cough. Denies dyspnea. GASTROINTESTINAL: Denies abdominal pain, nausea, vomiting, or diarrhea. GENITOURINARY: Denies dysuria or hematuria. SKIN: Denies rash or itching. MUSCULOSKELETAL: Denies back pain, joint pain, or myalgia. NEUROLOGIC: Denies headache, numbness, or weakness. PSYCHIATRIC: Denies anxiety or depression. All other systems reviewed are negative, except as documented in HPI. [facility] Past Medical History Medical History Patient denies medical problems Surgical History Surgical History No pertinent past surgical history Family History Family History Father Cancer of unknown origin Social History Social History Smoking status: Current every day smoker Tobacco type: e-cigarettes/vaping Alcohol intake: unknown Substance use: never Substance use type: does not use Living arrangements: with family Gender identity (if verbalized by the patient): Female Sexual Orientation (if Verbalized by the Patient): Straight or Heterosexual Spiritual care concerns: No Comments At time of signature, agree with nursing past medical, surgical, social and family history. There is no relevant family history pertinent to the presenting complaint. Exam Narrative: GENERAL: This is a well-nourished, well-developed patient, in no apparent distress. HEAD: normocephalic, atraumatic. EYES: PERRL. Sclera clear/white. Vision is grossly intact. EARS: External ears normal, auditory canals clear and without drainage, TMs normal without perforation. Hearing grossly intact. NOSE: External nose normal with Clear nasal drainage THROAT: Mucous membranes moist, postnasal drainage without erythema, swelling or exudates. NECK: Neck supple, non-tender without lymphadenopathy, masses or thyromegaly. CARDIOVASCULAR: Regular rate and rhythm without murmurs, gallops, or rubs. RESPIRATORY: Clear to auscultation. Breath sounds equal bilaterally. No wheezes, rales, or rhonchi. SKIN: warm, Dry, intact with no suspicious lesions or rash, good texture and turgor. NEURO: awake, alert, and oriented to person, place and time. There were no obvious focal neurologic abnormalities. EXTREMITIES: No joint tenderness, effusion, or edema noted. Course Course Level of Care: Express Care Visit Vital Signs Vital signs: Vital Signs Temperature 36.6 C 06/16/25 15:38 Pulse Rate 113 H 06/16/25 15:38 Respiratory Rate 18 06/16/25 15:38 Blood Pressure 138/76 06/16/25 15:38 Pulse Oximetry 100 06/16/25 15:38 Oxygen Delivery Room Air 06/16/25 15:38 Temperature 36.6 C 06/16/25 15:38 Pulse Rate 113 H 06/16/25 15:38 Respiratory Rate 18 06/16/25 15:38 Blood Pressure 138/76 06/16/25 15:38 Pulse Oximetry 100 06/16/25 15:38 Oxygen Delivery Room Air 06/16/25 15:38 reviewed MDM - URI/Sore Throat MDM Narrative Medical decision making narrative: patient is well-appearing, nontoxic. Lungs clear to auscultation. Recommend [id number] decongestant/ antihistamine For viral symptoms. Will send benzonatate and prednisone due for BC. Differential Diagnosis Differential diagnosis: Likely upper respiratory infection, sinusitis, viral infection and bronchitis Discharge Plan Discharge Clinical Impression: Acute viral sinusitis Patient Disposition: Home Condition: Stable Instructions: Sinusitis (ED) Additional Instructions: your symptoms are viral and may last 10-14 days. Take medications as prescribed. Purchase an [id number] decongestant such as Claritin D and take as directed on packaging. This medication is found by the pharmacy counter. Drink at least 64 oz water a day. Follow-up with your doctor if symptoms are not improving. Patient Language: Greek Prescriptions: New benzonatate 200 mg capsule 200 mg PO TID PRN (Reason: cough) Qty: 20 0RF prednisone 20 mg tablet 40 mg PO DAILY 5 Days Qty: 10 0RF No Action prednisone 50 mg tablet 50 mg PO DAILY Qty: 5 0RF albuterol sulfate 90 mcg/actuation HFA aerosol inhaler 2 puff inhalation QID PRN (Reason: shortness of breath or wheezing) Qty: 8.5 0RF dextromethorphan-guaifenesin [Mucinex DM] 60-1,200 mg tablet extended release 12 hr 1 tablet PO Q12H PRN (Reason: cough) Qty: 20 0RF Follow-up/Referrals: PHYSICIAN,ATMOSPHERIC PHYSICIST [Primary Care Provider] - Time of Disposition: 15:54
== END 2025-06-16 16:00 | disposition home or self-care (01) ==
PROVIDERS: Emergency Provider Nurse Practitioner Family
DX: J01.90 Acute sinusitis, unspecified (principal); F17.290 Nicotine dependence, other tobacco product, uncomplicated
CPT/HCPCS: 99213; G0463